=== PATIENT | female | born 1985 | race Caucasian/White ===

== ENCOUNTER 2020-09-22 15:21 | Inpatient (IN) | payer BC ==
[2020-09-22] MEDS ORDERED: Sodium Chloride 0.9% 10 ML Syringe FLUSH PRN (16:55)
[2020-09-22] MEDS ORDERED: Nalbuphine 10 MG/1 ML Vial IVPUSH PRN (16:55)
[2020-09-22] MEDS ORDERED: Ondansetron 4 MG/2 ML SDV IVPUSH PRN (16:55)
[2020-09-22] MEDS ORDERED: Oxytocin/Lactated Ringers 10 UNIT/1,000 ML BAG IV SCH ×2 (17:00)
[2020-09-22] MEDS ORDERED: Lactated Ringers 1,000 ML ONE (17:35)
[2020-09-22] MEDS: Lactated Ringers 1,000 ML IV SCH ×2 (17:52→21:20)
--- NOTE | 2020-09-22 17:53 | PCM.LDHP ---
L&D History of Present Illness - General Date of Service: 09/22/20 Admit Problem/Dx: Patient Status Order with Admit Dx/Problem 09/22/20 15:37 Patient Status [ADT] Routine 09/22/20 16:58 Patient Status [ADT] Routine Admission Diagnosis/Problem Admission Diagnosis/Problem 09/22/20 17:40 Induction of Labor Source of Information: Patient History Limitations: Reports: No Limitations - History of Present Illness Introduction:: 35 year old female at 39+6 weeks gestation presents with contractions to [facility]. She started having some irregular contractions last night and then she was having some stronger contractions this afternoon so decided to come in. Membranes are intact. She appears comfortable, contractions very irregular since she has been on the monitor. The RN checked her cervix and no change from when I checked her in the clinic on 09/20/20, 2 cm dilated, 60% effaced and station -3. Bedside ultrasound done by nurse confirmed vertex presentation. She is GBS negative and blood type A pos. Infectious disease screenings with labs all negative, including Hep C ab. 1 hour glucose was 142 but 3 hour GTT was all wnl. She received both influenza and Tdap immunizations with this . She has not had the COVID vaccine. She denies any COVID sx today and no known exposure to positive case. She did have a low lying placenta in early that resolved as the progressed. She did not do genetic testing or testing for NTD. She has history of 2 prior at 40 weeks with babies weighing 7 lb 15 oz and 7 lb 11 oz. Her last ultrasound on 08/24/20 gave EFW at 5 lb 2 oz (12%). She plans to formula feed her baby with a bottle. 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: Social & Family History - Family History Family Medical History: No Pertinent Family History - Tobacco Use Tobacco Use Status *Q: Never Tobacco User - Alcohol Use Alcohol Use History: No - Recreational Drug Use Recreational Drug Use: No - Living Situation & Occupation Living situation: Reports: Occupation: Employed H&P Review of Systems - Review of Systems: Review Of Systems: See Below General: Reports: No Symptoms HEENT: Reports: No Symptoms Pulmonary: Reports: No Symptoms Cardiovascular: Reports: No Symptoms Gastrointestinal: Reports: No Symptoms Genitourinary: Reports: No Symptoms Musculoskeletal: Reports: No Symptoms Skin: Reports: No Symptoms Psychiatric: Reports: No Symptoms Neurological: Reports: No Symptoms Hematologic/Lymphatic: Reports: No Symptoms Immunologic: Reports: No Symptoms L&D Exam - Exam Exam: See Below - Vital Signs Vital Signs: Last Vital Signs Temp 37.1 C 09/22/20 15:37 Pulse 74 09/22/20 15:37 Resp BP 121/72 09/22/20 15:37 Pulse Ox Weight: 63.957 kg - OB Specific Contraction Duration (sec): 60 secs Contraction Frequency (min): 5 mins Contraction Intensity: Mild Movement: Active Heart Tones: Present Heart Tones per Min: 130 Heart Rate (FHR) Variability: Moderate (6-25 bmp) Presentation: Vertex Estimated Weight: 7 lb - Rodríguez Score Rodríguez Score Cervix Position: Midposition Rodríguez Score Consistency: Soft Rodríguez Score Effacement: 51-70% Rodríguez Score Dilation: 1-2 cm Rodríguez Score Infant's Station: -3 Rodríguez Score Total: 6 - Exam General: Alert, Oriented, Cooperative, Mild Distress HEENT: Conjunctiva Clear, Pupils Equal Neck: Trachea Midline Lungs: Normal Respiratory Effort Cardiovascular: Regular Rate, Regular Rhythm Rectal Exam: Deferred Genitourinary: Other (Exam by RN) Back Exam: Normal Inspection Extremities: Normal Inspection, No Pedal Edema Skin: Warm, Dry, Intact Neurological: Cranial Nerves Intact Psychiatric: Alert, Normal Affect, Normal Mood - Problem List (1) 39 weeks gestation of SNOMED Code(s): 86262410 ICD Code: Z3A.39 - 39 WEEKS GESTATION OF Status: Acute Current Visit: Yes (2) Encounter for induction of labor SNOMED Code(s): 788103617 ICD Code: Z34.90 - ENCNTR FOR SUPRVSN OF NORMAL , UNSP, UNSP TRIMESTER Status: Acute Current Visit: Yes Problem List Initiated/Reviewed/Updated: Yes Orders Last 24hrs: Active Orders 24 hr Category Date Time Status Patient Status [ADT] Routine ADT 09/22/20 15:37 Active Patient Status [ADT] Routine ADT 09/22/20 16:58 Active Activity as Tolerated [RC] PFP Care 09/22/20 16:57 Active Communication Order [RC] ASDIRECTED Care 09/22/20 16:57 Active Heart Tones [RC] ASDIRECTED Care 09/22/20 16:58 Active Notify Provider [RC] PFP Care 09/22/20 16:57 Active Notify Provider [RC] PRN Care 09/22/20 16:57 Active Peripheral IV Care [RC] . DIRECTED Care 09/22/20 16:58 Active Urinary Catheter Assessment [RC] ASDIRECTED Care 09/22/20 16:55 Active Vital Signs [RC] PER UNIT ROUTINE Care 09/22/20 15:37 Active Vital Signs [RC] PER UNIT ROUTINE Care 09/22/20 16:57 Active Regular Diet [DIET] Diet 09/22/20 Dinner Active Regular Diet [DIET] Diet 09/22/20 Dinner Active CBC WITH AUTO DIFF [HEME] Stat Lab 09/22/20 16:55 Ordered CORONAVIRUS COVID-19 JOSH [MOLEC] Stat Lab 09/22/20 17:00 Ordered RAPID PLASMA REAGIN,RPR [CHEM] Routine Lab 09/22/20 16:57 Ordered TYPE AND SCREEN [BBK] Routine Lab 09/22/20 17:32 Ordered Lactated Ringers [Ringers, Lactated] 1,000 ml Med 09/22/20 17:00 Active IV ASDIRECTED Nalbuphine [Nubain] Med 09/22/20 16:55 Active 10 mg IVPUSH Q2H PRN Ondansetron [Zofran] Med 09/22/20 16:55 Active 4 mg IVPUSH Q4H PRN Oxytocin/Lactated Ringers [Pitocin in LR 10 Units/1,000 Med 09/22/20 17:00 Active ML] 10 unit in 1,000 ml IV .CONTINUOUS Oxytocin/Lactated Ringers [Pitocin in LR 10 Units/1,000 Med 09/22/20 17:00 Active ML] 10 unit in 1,000 ml IV TITRATE Sodium Chloride 0.9% [Saline Flush] Med 09/22/20 16:55 Active 10 ml FLUSH ASDIRECTED PRN Electronic Heart Tones Ext w TOCO [WOMSER] Oth 09/22/20 16:57 Ordered Routine Electronic Heart Tones Internal [WOMSER] Per Unit Oth 09/22/20 16:57 Ordered Routine Peripheral IV Insertion Adult [OM.PC] Routine Oth 09/22/20 16:57 Ordered Resuscitation Status Routine Resus Stat 09/22/20 15:37 Ordered Medication Orders Lactated Ringer's (Ringers, Lactated) 1,000 mls @ 100 mls/hr IV ASDIRECTED SERAFIN Oxytocin/Lactated Ringer's (Pitocin In Lr 10 Units/1,000 Ml) 10 unit in 1,000 mls @ 12 mls/hr IV TITRATE SERAFIN; Protocol Oxytocin/Lactated Ringer's (Pitocin In Lr 10 Units/1,000 Ml) 10 unit in 1,000 mls @ 500 mls/hr IV .CONTINUOUS SERAFIN Nalbuphine HCl (Nalbuphine 10 Mg/1 Ml Vial) 10 mg IVPUSH Q2H PRN PRN Reason: Pain Ondansetron HCl (Ondansetron 4 Mg/2 Ml Sdv) 4 mg IVPUSH Q4H PRN PRN Reason: Nausea/Vomiting Sodium Chloride (Sodium Chloride 0.9% 10 Ml Syringe) 10 ml FLUSH ASDIRECTED PRN PRN Reason: Keep Vein Open Assessment/Plan Comment:: A: Early spontaneous labor with intact membranes at term. GBS negative Plan: Admit to L&D and will start pitocin to augment her labor since she lives out of town and has a history of a quick delivery with her last baby. COVID test done on admission She would like an epidural when appropriate. Plan AROM to augment further once she is having stronger regular contractions and baby has come down. Plans to formula feed her baby.
[2020-09-22] MEDS ORDERED: diphenhydrAMINE 50 MG/ML SDV IVPUSH PRN (19:22)
[2020-09-22] MEDS ORDERED: Bupivacaine/fentaNYL/NS 100 ML Bag EPIDUR PRN (19:22)
[2020-09-22] MEDS ORDERED: fentaNYL 100 MCG/2 ML SDV EPIDUR PRN (19:22)
[2020-09-22] MEDS ORDERED: ePHEDrine 50 MG/ML SDV IVPUSH PRN (19:22)
[2020-09-22] MEDS ORDERED: Bupivacaine 0.25% 10 ML SDV ONE (20:00)
--- NOTE | 2020-09-22 21:33 | PCM.PREANE ---
Preanesthetic Assessment - Procedure Proposed Procedure: Epidural - Anesthesia/Transfusion/Family Hx Anesthesia History: Prior Anesthesia Without Reaction Family History of Anesthesia Reaction: No Transfusion History: No Prior Transfusion(s) - Review of Systems General: Fatigue Pulmonary: No Symptoms Cardiovascular: No Symptoms Gastrointestinal: Abdominal Pain (labor) Neurological: No Symptoms Other: Reports: None - Physical Assessment Vital Signs: Last Vital Signs Temp 37.1 C 09/22/20 15:37 Pulse 74 09/22/20 15:37 Resp BP 121/72 09/22/20 15:37 Pulse Ox Height: 1.68 m Weight: 63.957 kg ASA Class: 2 Mental Status: Alert & Oriented x3 Airway Class: Mallampati = 1 Dentition: Reports: Normal Dentition Thyro-Mental Finger Breadths: 3 Mouth Opening Finger Breadths: 3 ROM/Head Extension: Full Lungs: Clear to Auscultation, Normal Respiratory Effort Cardiovascular: Regular Rate, Regular Rhythm - Lab Values: Laboratory Last Values WBC 6.79 K/mm3 (3.98-10.04) 09/22/20 17:50 RBC 4.02 M/mm3 (3.98-5.22) 09/22/20 17:50 Hgb 12.5 gm/dl (11.2-15.7) 09/22/20 17:50 Hct 36.4 % (34.1-44.9) 09/22/20 17:50 MCV 90.5 fl (79.4-94.8) 09/22/20 17:50 MCH 31.1 pg (25.6-32.2) 09/22/20 17:50 MCHC 34.3 g/dl (32.2-35.5) 09/22/20 17:50 RDW Std Deviation 42.8 fL (36.4-46.3) 09/22/20 17:50 Plt Count 179 K/mm3 (182-369) L 09/22/20 17:50 MPV 9.6 fl (9.4-12.3) 09/22/20 17:50 Neut % (Auto) 65.1 % (34.0-71.1) 09/22/20 17:50 Lymph % (Auto) 26.1 % (19.3-51.7) 09/22/20 17:50 [place] % (Auto) 8.0 % (4.7-12.5) 09/22/20 17:50 Eos % (Auto) 0.4 (0.7-5.8) L 09/22/20 17:50 Baso % (Auto) 0.1 % (0.1-1.2) 09/22/20 17:50 Neut # (Auto) 4.42 K/mm3 (1.56-6.13) 09/22/20 17:50 Lymph # (Auto) 1.77 K/mm3 (1.18-3.74) 09/22/20 17:50 [place] # (Auto) 0.54 K/mm3 (0.24-0.36) H 09/22/20 17:50 Eos # (Auto) 0.03 K/mm3 (0.04-0.36) L 09/22/20 17:50 Baso # (Auto) 0.01 K/mm3 (0.01-0.08) 09/22/20 17:50 RPR Non-reactive (NONREACTIVE) 09/22/20 17:50 SARS-CoV-2 RNA (JOSH) Negative (NEGATIVE) 09/22/20 17:05 Blood Type A POSITIVE 09/22/20 17:50 Gel Antibody Screen Negative 09/22/20 17:50 - Allergies Allergies/Adverse Reactions: Allergies Allergy/AdvReac Type Severity Reaction Status Date / Time No Known Allergies Allergy Verified 08/26/15 21:05 - Anesthesia Plan Pre-Op Medication Ordered: None - Acknowledgements Anesthesia Type Planned: Epidural Pt an Appropriate Candidate for the Planned Anesthesia: Yes Alternatives and Risks of Anesthesia Discussed w Pt/Guardian: Yes Pt/Guardian Understands and Agrees with Anesthesia Plan: Yes PreAnesthesia Questionnaire - Past Health History Medical/Surgical History: Denies Medical/Surgical History Gastrointestinal History: Reports: 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: - SUBSTANCE USE Tobacco Use Status *Q: Never Tobacco User Second Hand Smoke Exposure: Yes Recreational Drug Use History: No - HOME MEDS Home Medications: Home Meds Pnv No.95/Ferrous Fum/Folic AC [ Tablet] 1 each PO DAILY 09/22/20 [History] - CURRENT (IN HOUSE) MEDS Current Meds: Current Medications Diphenhydramine HCl (Diphenhydramine 50 Mg/Ml Sdv) 25 mg IVPUSH Q6H PRN PRN Reason: pruritis Ephedrine Sulfate (Ephedrine 50 Mg/Ml Sdv) 5 mg IVPUSH ASDIRECTED PRN PRN Reason: Hypotension Fentanyl (Fentanyl 100 Mcg/2 Ml Sdv) 100 mcg EPIDUR Q3H PRN PRN Reason: Pain Fentanyl/Bupivacaine HCl (Bupivacaine/Fentanyl/Ns 100 Ml Bag) 100 ml EPIDUR ASDIRECTED PRN PRN Reason: Pain Lactated Ringer's (Ringers, Lactated) 1,000 mls @ 100 mls/hr IV ASDIRECTED SERAFIN Last Admin: 09/22/20 21:20 Dose: 999 mls/hr Documented by: Oxytocin/Lactated Ringer's (Pitocin In Lr 10 Units/1,000 Ml) 10 unit in 1,000 mls @ 12 mls/hr IV TITRATE SERAFIN; Protocol Last Titration: 09/22/20 19:45 Dose: 8 munits/min, 48 mls/hr Documented by: Oxytocin/Lactated Ringer's (Pitocin In Lr 10 Units/1,000 Ml) 10 unit in 1,000 mls @ 500 mls/hr IV .CONTINUOUS SERAFIN Nalbuphine HCl (Nalbuphine 10 Mg/1 Ml Vial) 10 mg IVPUSH Q2H PRN PRN Reason: Pain Ondansetron HCl (Ondansetron 4 Mg/2 Ml Sdv) 4 mg IVPUSH Q4H PRN PRN Reason: Nausea/Vomiting Sodium Chloride (Sodium Chloride 0.9% 10 Ml Syringe) 10 ml FLUSH ASDIRECTED PRN PRN Reason: Keep Vein Open Discontinued Medications Lactated Ringer's (Ringers, Lactated) Confirm Administered Dose 1,000 mls @ as directed .ROUTE .[facility] Stop: 09/22/20 17:36
[2020-09-22] MEDS ORDERED: Lidocaine 1% 50 ML MDV ONE (23:53)
[2020-09-23] MEDS ORDERED: Lidocaine 1% 50 ML MDV INJECT SCH (00:30)
--- NOTE | 2020-09-23 00:52 | PCM.DEL ---
L & D Note - General Info Date of Service: 09/22/20 Mother's Due Date: 09/23/20 - Delivery Note Labor: Spontaneous, Augmented by Oxytocin Delivery Outcome: Livebirth Infant Delivery Method: Spontaneous Vaginal Delivery-Single Infant Delivery Mode: Spontaneous Presentation: OP Nuchal Cord: Present (1 loop, easily reduced) Prep: Povidone-Iodine (Betadine Anesthesia Type: Epidural Anesthetic: Lidocaine (Xylocaine) 1% Plain Amniotic Fluid Description: Clear Episiotomy Type: None Laceration: 1st Degree Suture type: Vicryl Suture size: 3-0 Placenta: Intact, Spontaneous Cord: 3 Vessels Estimated Blood Loss: 100 Resuscitation Needed: No : Suctioned, Bulb Syringe, Stimulated, Warmed, [place] Used, Warmer Used Provider: Suzie Robins Score 1 min: 8 Score 5 min: 9 Delivery Comments (Free Text/Narrative):: 35 year old female at 39+6 weeks gestation presented with contractions to the hospital. She started having some irregular contractions last night and then she was having some stronger contractions this afternoon so decided to come in. Membranes are intact. She appears comfortable, contractions very irregular since she has been on the monitor. The RN checked her cervix and no change from when I checked her in the clinic on 09/20/20, 2 cm dilated, 60% effaced and station -3. Bedside ultrasound done by nurse confirmed vertex presentation. She is GBS negative and blood type A pos. Infectious disease screenings with labs all negative, including Hep C ab negative. 1 hour glucose was 142 but 3 hour GTT was all wnl. She received both influenza and Tdap immunizations with this . She has not had the COVID vaccine. She denies any COVID sx today and no known exposure to positive case. She did have a low lying placenta in early that resolved as the progressed. She did not do genetic testing or testing for NTD. She has history of 2 prior at 40 weeks with babies weighing 7 lb 15 oz and 7 lb 11 oz. Her last ultrasound on 08/24/20 gave EFW at 5 lb 2 oz (12%). She plans to formula feed her baby with a bottle. COVID test today was negative. Platelets mildly low at 179. RPR neg Pitocin augment was started and titrated up to 8 mu/min at the maximum and she was having strong regular contractions. She had SROM at 2019 for clear fluid. She was 4 cm dilated at that time, 80% effaced and station -1. She requested an epidural and it was placed and dosed at 2119. By 2199 she was 8-9 cm and I was called to come in. When I arrived at 2214, I checked her and she was completely dilated, station -1. There had been consistent early decelerations and some variables prior to my arrival. We got her set up and started pushing. Pitocin had been turned off prior to pushing due to tachysystole, but we did restart the pitocin at 2 mu/min after she started pushing to increase strength and regularity of contractions. Pitocin was increased to 6 mu/min during second stage. Baby was in ROP presentation by vaginal exam. Baby tolerated second stage well. Baby delivered from straight OP presentation and there was 1 loop of nuchal cord that easily was reduced. Shoulders delivered without difficulty. Time of delivery was 2347 and it was a baby boy. Baby cried at the perineum and had good tone. Mouth and nose were suctioned with bulb syringe, and baby was placed on mother's abdomen. Once the cord stopped pulsating, it was clamped and cut. There were 3 vessels in the cord. Baby was taken to the [facility] warmer for warming and measurements. Baby weighed 6 lb 14 oz (3110 gm). Apgars were 8 and 9 at 1 and 5 minutes respectively. Pitocin IV bolus was started. Placenta delivered spontaneously at 2352 and was intact. EBL was 100 ml. There was a first degree laceration that was repaired with 3-0 vicryl in the usual manner. Fundus firmed down nicely and both Mom and baby were left in the delivery room in stable condition. Mom plans to formula feed her baby. - General Info Date of Service: 09/22/20 Admission Dx/Problem (Free Text): Patient Status Order with Admit Dx/Problem 09/22/20 15:37 Patient Status [ADT] Routine 09/22/20 16:58 Patient Status [ADT] Routine Admission Diagnosis/Problem Admission Diagnosis/Problem 09/22/20 17:40 Induction of Labor Functional Status: Reports: Pain Controlled, Tolerating Diet - Review of Systems General: Reports: No Symptoms HEENT: Reports: No Symptoms Pulmonary: Reports: No Symptoms Cardiovascular: Reports: No Symptoms Gastrointestinal: Reports: No Symptoms Genitourinary: Reports: No Symptoms Musculoskeletal: Reports: No Symptoms Skin: Reports: No Symptoms Neurological: Reports: No Symptoms Psychiatric: Reports: No Symptoms - Patient Data Vitals - Most Recent: Last Vital Signs Temp 37.1 C 09/22/20 15:37 Pulse 74 09/22/20 15:37 Resp BP 121/72 09/22/20 15:37 Pulse Ox Weight - Most Recent: 63.957 kg Lab Results Last 24 Hours: Laboratory Results - last 24 hr 09/22/20 09/22/20 09/22/20 Range/Units 17:05 17:50 17:50 WBC 6.79 (3.98-10.04) K/mm3 RBC 4.02 (3.98-5.22) M/mm3 Hgb 12.5 (11.2-15.7) gm/dl Hct 36.4 (34.1-44.9) % MCV 90.5 (79.4-94.8) fl MCH 31.1 (25.6-32.2) pg MCHC 34.3 (32.2-35.5) g/dl RDW Std Deviation 42.8 (36.4-46.3) fL Plt Count 179 L (182-369) K/mm3 MPV 9.6 (9.4-12.3) fl Neut % (Auto) 65.1 (34.0-71.1) % Lymph % (Auto) 26.1 (19.3-51.7) % [place] % (Auto) 8.0 (4.7-12.5) % Eos % (Auto) 0.4 L (0.7-5.8) Baso % (Auto) 0.1 (0.1-1.2) % Neut # (Auto) 4.42 (1.56-6.13) K/mm3 Lymph # (Auto) 1.77 (1.18-3.74) K/mm3 [place] # (Auto) 0.54 H (0.24-0.36) K/mm3 Eos # (Auto) 0.03 L (0.04-0.36) K/mm3 Baso # (Auto) 0.01 (0.01-0.08) K/mm3 RPR Non-reactive (NONREACTIVE) SARS-CoV-2 RNA (JOSH) Negative (NEGATIVE) Blood Type Gel Antibody Screen 09/22/20 Range/Units 17:50 WBC (3.98-10.04) K/mm3 RBC (3.98-5.22) M/mm3 Hgb (11.2-15.7) gm/dl Hct (34.1-44.9) % MCV (79.4-94.8) fl MCH (25.6-32.2) pg MCHC (32.2-35.5) g/dl RDW Std Deviation (36.4-46.3) fL Plt Count (182-369) K/mm3 MPV (9.4-12.3) fl Neut % (Auto) (34.0-71.1) % Lymph % (Auto) (19.3-51.7) % [place] % (Auto) (4.7-12.5) % Eos % (Auto) (0.7-5.8) Baso % (Auto) (0.1-1.2) % Neut # (Auto) (1.56-6.13) K/mm3 Lymph # (Auto) (1.18-3.74) K/mm3 [place] # (Auto) (0.24-0.36) K/mm3 Eos # (Auto) (0.04-0.36) K/mm3 Baso # (Auto) (0.01-0.08) K/mm3 RPR (NONREACTIVE) SARS-CoV-2 RNA (JOSH) (NEGATIVE) Blood Type A POSITIVE Gel Antibody Screen Negative Med Orders - Current: Current Medications Diphenhydramine HCl (Diphenhydramine 50 Mg/Ml Sdv) 25 mg IVPUSH Q6H PRN PRN Reason: pruritis Ephedrine Sulfate (Ephedrine 50 Mg/Ml Sdv) 5 mg IVPUSH ASDIRECTED PRN PRN Reason: Hypotension Fentanyl (Fentanyl 100 Mcg/2 Ml Sdv) 100 mcg EPIDUR Q3H PRN PRN Reason: Pain Fentanyl/Bupivacaine HCl (Bupivacaine/Fentanyl/Ns 100 Ml Bag) 100 ml EPIDUR ASDIRECTED PRN PRN Reason: Pain Lactated Ringer's (Ringers, Lactated) 1,000 mls @ 100 mls/hr IV ASDIRECTED SERAFIN Last Admin: 09/22/20 21:20 Dose: 999 mls/hr Documented by: Oxytocin/Lactated Ringer's (Pitocin In Lr 10 Units/1,000 Ml) 10 unit in 1,000 mls @ 12 mls/hr IV TITRATE SERAFIN; Protocol Last Titration: 09/22/20 23:19 Dose: 6 munits/min, 36 mls/hr Documented by: Oxytocin/Lactated Ringer's (Pitocin In Lr 10 Units/1,000 Ml) 10 unit in 1,000 mls @ 500 mls/hr IV .CONTINUOUS SERAFIN Lidocaine HCl (Lidocaine 1% 50 Ml Mdv) 50 ml INJECT .ONCE SEARFIN Nalbuphine HCl (Nalbuphine 10 Mg/1 Ml Vial) 10 mg IVPUSH Q2H PRN PRN Reason: Pain Ondansetron HCl (Ondansetron 4 Mg/2 Ml Sdv) 4 mg IVPUSH Q4H PRN PRN Reason: Nausea/Vomiting Sodium Chloride (Sodium Chloride 0.9% 10 Ml Syringe) 10 ml FLUSH ASDIRECTED PRN PRN Reason: Keep Vein Open Discontinued Medications Lactated Ringer's (Ringers, Lactated) Confirm Administered Dose 1,000 mls @ as directed .ROUTE .[employer] ONE Stop: 09/22/20 17:36 Lidocaine HCl (Lidocaine 1% 50 Ml Mdv) Confirm Administered Dose 50 ml .ROUTE .[employer] Stop: 09/22/20 23:54 - Exam General: Alert, Oriented, Cooperative, No Acute Distress HEENT: Pupils Equal, Mucous Membr. Moist/[place] Neck: Trachea Midline Lungs: Normal Respiratory Effort Cardiovascular: Regular Rate (Female) Exam: Vaginal Bleeding, Vaginal Tears Back Exam: Normal Inspection, Full Range of Motion Extremities: Normal Inspection, No Pedal Edema Skin: Warm, Dry, Intact Wound/Incisions: Healing Well Neurological: No New Focal Deficit Psy/Mental Status: Alert, Normal Affect, Normal Mood - Problem List & Annotations (1) 39 weeks gestation of SNOMED Code(s): 27147340 Code(s): Z3A.39 - 39 WEEKS GESTATION OF Status: Acute Current Visit: Yes (2) Encounter for induction of labor SNOMED Code(s): 963196932 Code(s): Z34.90 - ENCNTR FOR SUPRVSN OF NORMAL , UNSP, UNSP TRIMESTER Status: Acute Current Visit: Yes (3) Normal spontaneous vaginal delivery SNOMED Code(s): 51224644, 971355808 Code(s): O80 - ENCOUNTER FOR FULL-TERM UNCOMPLICATED DELIVERY Status: Acute Current Visit: Yes - Problem List Review Problem List Initiated/Reviewed/Updated: Yes - My Orders Last 24 Hours: My Active Orders 09/22/20 15:37 Patient Status [ADT] Routine Vital Signs [RC] PER UNIT ROUTINE Resuscitation Status Routine 09/22/20 16:55 Urinary Catheter Assessment [RC] ASDIRECTED Nalbuphine [Nubain] 10 mg IVPUSH Q2H PRN Ondansetron [Zofran] 4 mg IVPUSH Q4H PRN Sodium Chloride 0.9% [Saline Flush] 10 ml FLUSH ASDIRECTED PRN 09/22/20 16:57 Activity as Tolerated [RC] PFP Communication Order [RC] ASDIRECTED Notify Provider [RC] PFP Electronic Heart Tones Ext w TOCO [WOMSER] Routine Electronic Heart Tones Internal [WOMSER] Per Unit Routine Peripheral IV Insertion Adult [OM.PC] Routine 09/22/20 16:58 Patient Status [ADT] Routine Peripheral IV Care [RC] . DIRECTED 09/22/20 Dinner Regular Diet [DIET] Regular Diet [DIET] Lactated Ringers [Ringers, Lactated] 1,000 ml IV ASDIRECTED Oxytocin/Lactated Ringers [Pitocin in LR 10 Units/1,000 ML] 10 unit in 1,000 ml IV .CONTINUOUS Oxytocin/Lactated Ringers [Pitocin in LR 10 Units/1,000 ML] 10 unit in 1,000 ml IV TITRATE 09/23/20 00:25 Patient Status Manage Transfer [TRANSFER] Routine 09/23/20 00:30 Lidocaine 1% [Xylocaine 1%] 50 ml INJECT .ONCE - Assessment Assessment:: at 39+6 weeks gestation. Spontaneous onset of labor with pitocin augmentation and SROM. - Plan Plan:: A: Early spontaneous labor with intact membranes at term. GBS negative Plan: Admit to L&D and will start pitocin to augment her labor since she lives out of town and has a history of a quick delivery with her last baby. COVID test done on admission She would like an epidural when appropriate. Plan AROM to augment further once she is having stronger regular contractions and baby has come down. Plans to formula feed her baby. : Routine care. EBL after completion of perineal tear was 100ml. Plans to bottle feed baby.
[2020-09-23] MEDS ORDERED: Witch Hazel Medicated Pads 40/Jar TOP PRN (03:08)
[2020-09-23] MEDS ORDERED: Docusate Sodium 100 MG Cap PO PRN (03:08)
[2020-09-23] MEDS ORDERED: Famotidine 20 MG Tab PO PRN (03:08)
[2020-09-23] MEDS ORDERED: Acetaminophen 325 MG Tab PO PRN (03:08)
[2020-09-23] MEDS ORDERED: Benzocaine/Menthol 20%-0.5% Spray 56 GM Canister TOP PRN (03:08)
[2020-09-23] MEDS: Ibuprofen 800 MG Tab PO PRN ×3 (06:16→20:36)
[2020-09-23] MEDS: Prenatal Multivitamin with Calcium/Folic Acid/Iron Tab PO SCH (14:51)
--- NOTE | 2020-09-23 15:17 | PCM48HPAN ---
Post Anesthesia Note - EVALUATION WITHIN 48HRS OF ANESTHETIC Vital Signs in Normal Range: Yes Patient Participated in Evaluation: Yes Respiratory Function Stable: Yes Airway Patent: Yes Cardiovascular Function Stable: Yes Hydration Status Stable: Yes Pain Control Satisfactory: Yes Nausea and Vomiting Control Satisfactory: Yes Mental Status Recovered: Yes Vital Signs: Last Vital Signs Temp 36.7 C 09/23/20 04:38 Pulse 74 09/23/20 04:38 Resp 14 09/23/20 04:38 BP 104/70 09/23/20 04:38 Pulse Ox 96 09/23/20 04:38 - COMMENTS/OBSERVATIONS Free Text/Narrative:: no anesthesia complications noted
--- NOTE | 2020-09-23 17:38 | PCM.PNPP ---
- General Info Date of Service: 09/23/20 Admission Dx/Problem (Free Text): Patient Status Order with Admit Dx/Problem 09/22/20 15:37 Patient Status [ADT] Routine 09/22/20 16:58 Patient Status [ADT] Routine Admission Diagnosis/Problem Admission Diagnosis/Problem 09/22/20 17:40 Induction of Labor Subjective Update: Patient is doing well. Bleeding is slowing. Denies headache, dizziness. Good appetite, no nausea. HAs noticed increased swelling in her legs but denies calf pain. She is bottle feeding. Mood is happy. She has been applying ice pads and taking a warm bath to help with perineal swelling. Bonding well with baby. Functional Status: Reports: Pain Controlled, Tolerating Diet, Ambulating, Urinating - Review of Systems General: Reports: No Symptoms HEENT: Reports: No Symptoms Pulmonary: Reports: No Symptoms Cardiovascular: Reports: No Symptoms Gastrointestinal: Reports: No Symptoms Genitourinary: Reports: No Symptoms Musculoskeletal: Reports: Back Pain (Mild discomfort at epidural site) Skin: Reports: No Symptoms Neurological: Reports: No Symptoms Psychiatric: Reports: No Symptoms - General Info Date of Service: 09/23/20 - Patient Data Vital Signs - Most Recent: Last Vital Signs Temp 36.7 C 09/23/20 04:38 Pulse 74 09/23/20 04:38 Resp 14 09/23/20 04:38 BP 104/70 09/23/20 04:38 Pulse Ox 96 09/23/20 04:38 Weight - Most Recent: 63.957 kg I&O - Last 24 Hours: Intake & Output 09/23/20 09/23/20 09/23/20 06:59 14:59 22:59 Intake Total 60 0 Balance 60 0 Lab Results - Last 24 Hours: Laboratory Results - last 24 hr 09/22/20 09/22/20 09/22/20 Range/Units 17:05 17:50 17:50 WBC 6.79 (3.98-10.04) K/mm3 RBC 4.02 (3.98-5.22) M/mm3 Hgb 12.5 (11.2-15.7) gm/dl Hct 36.4 (34.1-44.9) % MCV 90.5 (79.4-94.8) fl MCH 31.1 (25.6-32.2) pg MCHC 34.3 (32.2-35.5) g/dl RDW Std Deviation 42.8 (36.4-46.3) fL Plt Count 179 L (182-369) K/mm3 MPV 9.6 (9.4-12.3) fl Neut % (Auto) 65.1 (34.0-71.1) % Lymph % (Auto) 26.1 (19.3-51.7) % Cole % (Auto) 8.0 (4.7-12.5) % Eos % (Auto) 0.4 L (0.7-5.8) Baso % (Auto) 0.1 (0.1-1.2) % Neut # (Auto) 4.42 (1.56-6.13) K/mm3 Lymph # (Auto) 1.77 (1.18-3.74) K/mm3 Cole # (Auto) 0.54 H (0.24-0.36) K/mm3 Eos # (Auto) 0.03 L (0.04-0.36) K/mm3 Baso # (Auto) 0.01 (0.01-0.08) K/mm3 RPR Non-reactive (NONREACTIVE) SARS-CoV-2 RNA (JOSH) Negative (NEGATIVE) Blood Type Gel Antibody Screen 09/22/20 Range/Units 17:50 WBC (3.98-10.04) K/mm3 RBC (3.98-5.22) M/mm3 Hgb (11.2-15.7) gm/dl Hct (34.1-44.9) % MCV (79.4-94.8) fl MCH (25.6-32.2) pg MCHC (32.2-35.5) g/dl RDW Std Deviation (36.4-46.3) fL Plt Count (182-369) K/mm3 MPV (9.4-12.3) fl Neut % (Auto) (34.0-71.1) % Lymph % (Auto) (19.3-51.7) % Cole % (Auto) (4.7-12.5) % Eos % (Auto) (0.7-5.8) Baso % (Auto) (0.1-1.2) % Neut # (Auto) (1.56-6.13) K/mm3 Lymph # (Auto) (1.18-3.74) K/mm3 Cole # (Auto) (0.24-0.36) K/mm3 Eos # (Auto) (0.04-0.36) K/mm3 Baso # (Auto) (0.01-0.08) K/mm3 RPR (NONREACTIVE) SARS-CoV-2 RNA (JOSH) (NEGATIVE) Blood Type A POSITIVE Gel Antibody Screen Negative Med Orders - Current: Current Medications Acetaminophen (Acetaminophen 325 Mg Tab) 650 mg PO Q4H PRN PRN Reason: mild pain or fever Benzocaine/Menthol (Benzocaine/Menthol 20%-0.5% Protem 56 Gm Canister) 0 gm TOP ASDIRECTED PRN PRN Reason: Perineal Comfort Measure Diphenhydramine HCl (Diphenhydramine 50 Mg/Ml Sdv) 25 mg IVPUSH Q6H PRN PRN Reason: pruritis Docusate Sodium (Docusate Sodium 100 Mg Cap) 100 mg PO BID PRN PRN Reason: Constipation Famotidine (Famotidine 20 Mg Tab) 20 mg PO BID PRN PRN Reason: Heartburn Lactated Ringer's (Ringers, Lactated) 1,000 mls @ 100 mls/hr IV ASDIRECTED [facility] Last Infusion: 09/22/20 21:30 Dose: 100 mls/hr Documented by: Ibuprofen (Ibuprofen 800 Mg Tab) 800 mg PO Q6H PRN PRN Reason: Mild pain or fever Last Admin: 09/23/20 14:50 Dose: 800 mg Documented by: Prenat Multivit/[place]/Iron/Folic Ac ( Multivitamin With Calcium/Folic Acid/Iron Tab) 1 each PO DAILY [facility] Last Admin: 09/23/20 14:51 Dose: Not Given Documented by: Sodium Chloride (Sodium Chloride 0.9% 10 Ml Syringe) 10 ml FLUSH ASDIRECTED PRN PRN Reason: Keep Vein Open Witch Nila (Witch Nila Medicated Pads 40/Jar) 1 pad TOP ASDIRECTED PRN PRN Reason: Perineal Comfort Measure Discontinued Medications Ephedrine Sulfate (Ephedrine 50 Mg/Ml Sdv) 5 mg IVPUSH ASDIRECTED PRN PRN Reason: Hypotension Fentanyl (Fentanyl 100 Mcg/2 Ml Sdv) 100 mcg EPIDUR Q3H PRN PRN Reason: Pain Fentanyl/Bupivacaine HCl (Bupivacaine/Fentanyl/Ns 100 Ml Bag) 100 ml EPIDUR ASDIRECTED PRN PRN Reason: Pain Oxytocin/Lactated Ringer's (Pitocin In Lr 10 Units/1,000 Ml) 10 unit in 1,000 mls @ 12 mls/hr IV TITRATE SERAFIN; Protocol Last Titration: 09/23/20 00:30 Dose: 41.67 munits/min, 250.02 mls/hr Documented by: Oxytocin/Lactated Ringer's (Pitocin In Lr 10 Units/1,000 Ml) 10 unit in 1,000 mls @ 500 mls/hr IV .CONTINUOUS SERAFIN Lactated Ringer's (Ringers, Lactated) Confirm Administered Dose 1,000 mls @ as directed .ROUTE .Spritz ONE Stop: 09/22/20 17:36 Last Admin: 09/22/20 17:30 Dose: Not Given Documented by: Lidocaine HCl (Lidocaine 1% 50 Ml Mdv) Confirm Administered Dose 50 ml .ROUTE .Spritz ONE Stop: 09/22/20 23:54 Last Admin: 09/23/20 00:47 Dose: Not Given Documented by: Lidocaine HCl (Lidocaine 1% 50 Ml Mdv) 50 ml INJECT .ONCE SERAFIN Nalbuphine HCl (Nalbuphine 10 Mg/1 Ml Vial) 10 mg IVPUSH Q2H PRN PRN Reason: Pain Ondansetron HCl (Ondansetron 4 Mg/2 Ml Sdv) 4 mg IVPUSH Q4H PRN PRN Reason: Nausea/Vomiting - Infant Interaction Infant Disposition, : [place] at Bedside Infant Interaction: Holding Infant Infant Feeding: Bottle Fed Support Person: - Recovery Exam Fundal Tone: Firm Fundal Level: 1 Fingerbreadths Above Umbilicus (currently has full bladder) Fundal Placement: Right Lochia Amount: Small Lochia Color: Rubra/Red Perineum Description: Intact, Minimal Bruising/Swelling Episiotomy/Laceration: Approximated Bladder Status: Voiding Urinary Elimination: Voided - Exam General: Alert, Oriented HEENT: Pupils Equal, Mucous Membr. Moist/[place] Neck: Supple Lungs: Normal Respiratory Effort Cardiovascular: Regular Rate, Regular Rhythm GI/Abdominal Exam: Normal Bowel Sounds, Soft, No Distention Extremities: Normal Inspection, Normal Range of Motion, Normal Capillary Refill, Pedal Edema Skin: Warm, Dry, Intact Wound/Incisions: Healing Well Neurological: No New Focal Deficit Psy/Mental Status: Alert, Normal Affect, Normal Mood - Problem List & Annotations (1) 39 weeks gestation of SNOMED Code(s): 47599240 Code(s): Z3A.39 - 39 WEEKS GESTATION OF Status: Acute Current Visit: Yes (2) Encounter for induction of labor SNOMED Code(s): 018380681 Code(s): Z34.90 - ENCNTR FOR SUPRVSN OF NORMAL , UNSP, UNSP TRIMESTER Status: Acute Current Visit: Yes (3) Normal spontaneous vaginal delivery SNOMED Code(s): 89532761, 948691361 Code(s): O80 - ENCOUNTER FOR FULL-TERM UNCOMPLICATED DELIVERY Status: Acute Current Visit: Yes - Problem List Review Problem List Initiated/Reviewed/Updated: Yes - My Orders Last 24 Hours: My Active Orders 09/22/20 16:55 Sodium Chloride 0.9% [Saline Flush] 10 ml FLUSH ASDIRECTED PRN 09/22/20 Dinner Regular Diet [DIET] Lactated Ringers [Ringers, Lactated] 1,000 ml IV ASDIRECTED 09/23/20 03:08 Acetaminophen [TylenoL] 650 mg PO Q4H PRN Benzocaine/Menthol [Dermoplast Pain Relief Protem] See Dose Instructions TOP ASDIRECTED PRN Docusate Sodium [Colace] 100 mg PO BID PRN Famotidine [Pepcid] 20 mg PO BID PRN Ibuprofen [Motrin] 800 mg PO Q6H PRN witch Nila [Tucks] 1 pad TOP ASDIRECTED PRN Heat Therapy [OM.PC] PRN 09/23/20 03:08 Patient Status [ADT] Routine Activity as Tolerated [RC] PER UNIT ROUTINE May Shower [RC] ASDIRECTED Up ad Chantel [RC] ASDIRECTED Vital Signs [RC] ASDIRECTED Assess Lochia [WOMSER] Per Unit Routine Assess Uterine Involution [WOMSER] Per Unit Routine Breast Pump [WOMSER] Per Unit Routine Medication Administration Instruction [OM.PC] Routine Perineal Care [OM.PC] Per Unit Routine Peripheral IV Discontinue [OM.PC] Routine Sitz Bath [OM.PC] Per Unit Routine 09/23/20 09:00 Vit with Ca/FA/Iron [ Plus Iron] 1 each PO DAILY 09/24/20 03:08 Heat Therapy [OM.PC] PRN - Assessment Assessment:: at 39+6 weeks gestation. Spontaneous onset of labor with pitocin augmentation and SROM. 09/23/20 1400 day #1 Doing well , pain controlled and bleeding light. Bonding well with baby. - Plan Plan:: A: Early spontaneous labor with intact membranes at term. GBS negative Plan: Admit to L&D and will start pitocin to augment her labor since she lives out of town and has a history of a quick delivery with her last baby. COVID test done on admission She would like an epidural when appropriate. Plan AROM to augment further once she is having stronger regular contractions and baby has come down. Plans to formula feed her baby. : Routine care. EBL after completion of perineal tear was 100ml. Plans to bottle feed baby. 09/23/20 PP Day #1 1. Continue routine care. 2. Bottle feeding, will need to discuss management of engorgement. 3. Plan discharge home tomorrow.
[2020-09-24] MEDS: Ibuprofen 800 MG Tab PO PRN (03:49)
[2020-09-24 04:29] VITALS: PULSE 55
--- NOTE | 2020-09-24 08:28 | PCM.DCSUM1 ---
Discharge Summary - Hospital Course Free Text/Narrative:: 35 year old female at 39+6 weeks gestation presented with contractions to the hospital. She started having some irregular contractions last night and then she was having some stronger contractions this afternoon so decided to come in. Membranes are intact. She appears comfortable, contractions very irregular since she has been on the monitor. The RN checked her cervix and no change from when I checked her in the clinic on 09/20/20, 2 cm dilated, 60% effaced and station -3. Bedside ultrasound done by nurse confirmed vertex presentation. She is GBS negative and blood type A pos. Infectious disease screenings with labs all negative, including Hep C ab negative. 1 hour glucose was 142 but 3 hour GTT was all wnl. She received both influenza and Tdap immunizations with this . She has not had the COVID vaccine. She denies any COVID sx today and no known exposure to positive case. She did have a low lying placenta in early that resolved as the progressed. She did not do genetic testing or testing for NTD. She has history of 2 prior at 40 weeks with babies weighing 7 lb 15 oz and 7 lb 11 oz. Her last ultrasound on 08/24/20 gave EFW at 5 lb 2 oz (12%). She plans to formula feed her baby with a bottle. COVID test today was negative. Platelets mildly low at 179. RPR neg Pitocin augment was started and titrated up to 8 mu/min at the maximum and she was having strong regular contractions. She had SROM at 2019 for clear fluid. She was 4 cm dilated at that time, 80% effaced and station -1. She requested an epidural and it was placed and dosed at 2119. By 2199 she was 8-9 cm and I was called to come in. When I arrived at 2214, I checked her and she was completely dilated, station -1. There had been consistent early decelerations and some variables prior to my arrival. We got her set up and started pushing. Pitocin had been turned off prior to pushing due to tachysystole, but we did restart the pitocin at 2 mu/min after she started pushing to increase strength and regul arity of contractions. Pitocin was increased to 6 mu/min during second stage. Baby was in ROP presentation by vaginal exam. Baby tolerated second stage well. Baby delivered from straight OP presentation and there was 1 loop of nuchal cord that easily was reduced. Shoulders delivered without difficulty. Time of delivery was 2347 and it was a baby boy. Baby cried at the perineum and had good tone. Mouth and nose were suctioned with bulb syringe, and baby was placed on mother's abdomen. Once the cord stopped pulsating, it was clamped and cut. There were 3 vessels in the cord. Baby was taken to the [facility] warmer for warming and measurements. Baby weighed 6 lb 14 oz (3110 gm). Apgars were 8 and 9 at 1 and 5 minutes respectively. Pitocin IV bolus was started. Placenta delivered spontaneously at 2352 and was intact. EBL was 100 ml. There was a first degree laceration that was repaired with 3-0 vicryl in the usual manner. Fundus firmed down nicely and both Mom and baby were left in the delivery room in stable condition. Mom plans to formula feed her baby. She has done well . She is bonding well with baby and EPDS is 0. She has been using motrin for cramping and that is working well for her. Bleeding is slowing, no clots. Fundus is firm. Denies headache after epidural, just mild tenderness at the site. She is bottlefeeding. Diagnosis: Stroke: No Modified Morgan Scale: No Symptoms at All Modified Morgan Scale Score: 0 - Discharge Data Discharge Date: 09/24/20 Discharge Disposition: Home, Self-Care 01 Condition: Good - Referral to Home Health Primary Care Physician: Suzie Robins MD - Discharge Diagnosis/Problem(s) (1) 39 weeks gestation of SNOMED Code(s): 29017991 ICD Code: Z3A.39 - 39 WEEKS GESTATION OF Status: Acute Current Visit: Yes (2) Encounter for induction of labor SNOMED Code(s): 452419564 ICD Code: Z34.90 - ENCNTR FOR SUPRVSN OF NORMAL , UNSP, UNSP TRIMESTER Status: Acute Current Visit: Yes (3) Normal spontaneous vaginal delivery SNOMED Code(s): 05183712, 268604973 ICD Code: O80 - ENCOUNTER FOR FULL-TERM UNCOMPLICATED DELIVERY Status: Acute Current Visit: Yes - Patient Instructions Diet: Usual Diet as Tolerated, Drink 8-10+ Glasses/Day Activity: Apply Ice, As Tolerated, No Lifting Over 10 Pounds Driving: May Drive Today Showering/Bathing: May Shower Notify Provider of: Fever, Increased Pain, Swelling and Redness, Drainage, Nausea and/or Vomiting - Discharge Plan *PRESCRIPTION DRUG MONITORING PROGRAM REVIEWED*: No *COPY OF PRESCRIPTION DRUG MONITORING REPORT IN PATIENT OJANN: Not Applicable Home Medications: Home Meds Pnv No.95/Ferrous Fum/Folic AC [ Tablet] 1 each PO DAILY 09/22/20 [History] Acetaminophen [Tylenol] 650 mg PO Q4H PRN tablet 09/23/20 [Rx] Benzocaine/Menthol [Dermoplast Pain Relief [place]] 1 applic TOP ASDIRECTED PRN canister 09/23/20 [Rx] Docusate Sodium [Colace] 100 mg PO BID PRN cap 09/23/20 [Rx] Ibuprofen [Motrin] 800 mg PO Q6H PRN tablet 09/23/20 [Rx] mamadou Nila [Tucks] 1 pad TOP ASDIRECTED PRN pad 09/23/20 [Rx] Oxygen Therapy Mode: Room Air - Discharge Summary/Plan Comment DC Time >30 min.: No Discharge Summary/Plan Comment: 35 year old G3 now P3 female who delivered baby boy at 39+6 weeks gestation by . She started having contractions on her own and we augmented her labor with pitocin and then she had SROM and progressed quickly after that. Baby was OP presentation, so she pushed for almost 1.5 hours. She had first degree perineal laceration that was repaired in the usual manner. EBL after delivery was 100 ml. QBL was 176 ml. She has been bottle feeding with formula and no concerns. Mood is good and bonding well with baby. Plan: Routine instructions. Follow up in the clinic with Dr. Robins in 6 weeks. Plans to use condoms for contraception. - General Info Date of Service: 09/24/20 Admission Dx/Problem (Free Text: Patient Status Order with Admit Dx/Problem 09/22/20 15:37 Patient Status [ADT] Routine 09/22/20 16:58 Patient Status [ADT] Routine Admission Diagnosis/Problem Admission Diagnosis/Problem 09/22/20 17:40 Induction of Labor Subjective Update: Patient is doing well. Bleeding is slowing. Denies headache, dizziness. Good appetite, no nausea. HAs noticed increased swelling in her legs but denies calf pain. She is bottle feeding. Mood is happy. She has been applying ice pads and taking a warm bath to help with perineal swelling. Bonding well with baby. 09/24/20 - continues to do well. EPDS is 0. Pain controlled with ibuprofen. Has not yet had a BM since delivery. ANxious to go home with baby. Functional Status: Reports: Pain Controlled, Tolerating Diet, Ambulating, Urinating - Review of Systems General: Reports: No Symptoms HEENT: Reports: No Symptoms Pulmonary: Reports: No Symptoms Cardiovascular: Reports: No Symptoms Gastrointestinal: Reports: No Symptoms Genitourinary: Reports: No Symptoms Musculoskeletal: Reports: No Symptoms Skin: Reports: No Symptoms Neurological: Reports: No Symptoms Psychiatric: Reports: No Symptoms - Patient Data Vitals - Most Recent: Last Vital Signs Temp 36.8 C 09/24/20 03:53 Pulse 55 L 09/24/20 03:53 Resp 15 09/24/20 03:53 BP 106/50 L 09/24/20 03:53 Pulse Ox 99 09/24/20 03:53 Weight - Most Recent: 63.957 kg I&O - Last 24 hours: Intake & Output 09/23/20 09/24/20 09/24/20 22:59 06:59 14:59 Intake Total 0 Balance 0 Med Orders - Current: Current Medications Acetaminophen (Acetaminophen 325 Mg Tab) 650 mg PO Q4H PRN PRN Reason: mild pain or fever Benzocaine/Menthol (Benzocaine/Menthol 20%-0.5% [place] 56 Gm Canister) 0 gm TOP ASDIRECTED PRN PRN Reason: Perineal Comfort Measure Diphenhydramine HCl (Diphenhydramine 50 Mg/Ml Sdv) 25 mg IVPUSH Q6H PRN PRN Reason: pruritis Docusate Sodium (Docusate Sodium 100 Mg Cap) 100 mg PO BID PRN PRN Reason: Constipation Last Admin: 09/23/20 20:35 Dose: 100 mg Documented by: Famotidine (Famotidine 20 Mg Tab) 20 mg PO BID PRN PRN Reason: Heartburn Lactated Ringer's (Ringers, Lactated) 1,000 mls @ 100 mls/hr IV ASDIRECTED SERAFIN Last Infusion: 09/22/20 21:30 Dose: 100 mls/hr Documented by: Ibuprofen (Ibuprofen 800 Mg Tab) 800 mg PO Q6H PRN PRN Reason: Mild pain or fever Last Admin: 09/24/20 03:49 Dose: 800 mg Documented by: Prenat Multivit/[place]/Iron/Folic Ac ( Multivitamin With Calcium/Folic Acid/Iron Tab) 1 each PO DAILY SERAFIN Last Admin: 09/23/20 14:51 Dose: Not Given Documented by: Sodium Chloride (Sodium Chloride 0.9% 10 Ml Syringe) 10 ml FLUSH ASDIRECTED PRN PRN Reason: Keep Vein Open Witch Nila (Witch Nila Medicated Pads 40/Jar) 1 pad TOP ASDIRECTED PRN PRN Reason: Perineal Comfort Measure Discontinued Medications Ephedrine Sulfate (Ephedrine 50 Mg/Ml Sdv) 5 mg IVPUSH ASDIRECTED PRN PRN Reason: Hypotension Fentanyl (Fentanyl 100 Mcg/2 Ml Sdv) 100 mcg EPIDUR Q3H PRN PRN Reason: Pain Fentanyl/Bupivacaine HCl (Bupivacaine/Fentanyl/Ns 100 Ml Bag) 100 ml EPIDUR ASDIRECTED PRN PRN Reason: Pain Oxytocin/Lactated Ringer's (Pitocin In Lr 10 Units/1,000 Ml) 10 unit in 1,000 mls @ 12 mls/hr IV TITRATE SERAFIN; Protocol Last Titration: 09/23/20 00:30 Dose: 41.67 munits/min, 250.02 mls/hr Documented by: Oxytocin/Lactated Ringer's (Pitocin In Lr 10 Units/1,000 Ml) 10 unit in 1,000 mls @ 500 mls/hr IV .CONTINUOUS SERAFIN Lactated Ringer's (Ringers, Lactated) Confirm Administered Dose 1,000 mls @ as directed .ROUTE .STKeukey-MED ONE Stop: 09/22/20 17:36 Last Admin: 09/22/20 17:30 Dose: Not Given Documented by: Lidocaine HCl (Lidocaine 1% 50 Ml Mdv) Confirm Administered Dose 50 ml .ROUTE .STK-MED ONE Stop: 09/22/20 23:54 Last Admin: 09/23/20 00:47 Dose: Not Given Documented by: Lidocaine HCl (Lidocaine 1% 50 Ml Mdv) 50 ml INJECT .ONCE SERAFIN Nalbuphine HCl (Nalbuphine 10 Mg/1 Ml Vial) 10 mg IVPUSH Q2H PRN PRN Reason: Pain Ondansetron HCl (Ondansetron 4 Mg/2 Ml Sdv) 4 mg IVPUSH Q4H PRN PRN Reason: Nausea/Vomiting - Exam General: Reports: Alert, Oriented HEENT: Reports: Pupils Equal, EOMI, Mucous Membr. Moist/[place] Neck: Reports: Supple Lungs: Reports: Normal Respiratory Effort Cardiovascular: Reports: Regular Rate, Regular Rhythm GI/Abdominal Exam: Normal Bowel Sounds, Soft, Non-Tender, No Organomegaly, No Distention, No Abnormal Bruit, No Mass, Pelvis Stable (Female) Exam: Normal External Exam Rectal (Female) Exam: Deferred Back Exam: Reports: Normal Inspection, Full Range of Motion, Vertebral Tenderness (Mild tenderness at epidural site. No bruising noted. ) Extremities: Normal Inspection, Normal Range of Motion, Non-Tender, Normal Capillary Refill, Pedal Edema (Mild. No calf tenderness to palpation) Skin: Reports: Warm, Dry, Intact Wound/Incisions: Reports: Healing Well Neurological: Reports: No New Focal Deficit Psy/Mental Status: Reports: Alert, Normal Affect, Normal Mood
[2020-09-24 09:22] VITALS: BP 111/58
[2020-09-24] MEDS: Prenatal Multivitamin with Calcium/Folic Acid/Iron Tab PO SCH (09:30)
== END 2020-09-24 09:40 | disposition home or self-care (01) | DRG 560 ==
LOC: JD.OB 15:21 → JD.OBCHECK 15:21 → JD.OB 16:58 → OBSVTOIN 23:47
PROVIDERS: ADMIT Family Medicine; ATTEND Family Medicine
PROC: 10E0XZZ Delivery of Products of Conception, External Approach (ICD-10-PCS; principal; 2020-09-22)
PROC: 0HQ9XZZ Repair Perineum Skin, External Approach (ICD-10-PCS; 2020-09-22)
PROC: 3E0R3BZ Introduction of Anesthetic Agent into Spinal Canal, Percutaneous Approach (ICD-10-PCS; 2020-09-22)
PROC: 00HU33Z Insertion of Infusion Device into Spinal Canal, Percutaneous Approach (ICD-10-PCS; 2020-09-22)
DX: O69.81X0 Labor and delivery complicated by cord around neck, without compression, not applicable or unspecified (principal); Z3A.39 39 weeks gestation of pregnancy; Z37.0 Single live birth; O70.0 First degree perineal laceration during delivery; Z20.822 Contact with and (suspected) exposure to COVID-19
CPT/HCPCS: 01967; 36415; 51701; 59025; 59409; 85025; 86592; 86850; 86900; 86901; A9270-GY; J2590; J3490; J7120; U0002